=== PATIENT | female | born 1960 | race Two or more races ===

== ENCOUNTER → 2018-03-07 | Outpatient (CLI) | payer OTHER ==
[2018-03-07 11:06] LABS: ABSOLUTE BASOPHILS # (AUTO) 0.1 10^3/uL (0.0-0.2); ABSOLUTE EOSINOPHILS # (AUTO) 0.1 10^3/uL (0.0-0.6); ABSOLUTE LYMPHOCYTES (AUTO) 2.1 10^3/uL (0.5-4.7); ABSOLUTE MONOCYTES (AUTO) 0.4 10^3/uL (0.1-1.4); ABSOLUTE NEUT (AUTO) 4.8 10^3/uL (1.7-8.2); BASOPHILS % (AUTO) 0.7 % (0-2); HEMATOCRIT 42.2 % (36.0-47.0); HEMOGLOBIN 14.6 g/dL (12.0-15.5); LYMPHOCYTES % (AUTO) 27.8 % (13-45); MEAN CORPUSCULAR HEMOGLOBIN 31.1 pg (27.0-33.4); MEAN CORPUSCULAR HGB CONC 34.7 g/dL (32.0-36.0); MEAN CORPUSCULAR VOLUME 90 fl (80-97); MONOCYTES % (AUTO) 5.4 % (3-13); PLATELET COUNT 191 10^3/uL (150-450); RED BLOOD COUNT 4.71 10^6/uL (3.72-5.28); RED CELL DISTRIBUTION WIDTH 13.7 % (11.5-14.0); SEGMENTED NEUTROPHILS % (AUTO) 64.1 % (42-78); TOTAL CELLS COUNTED % (AUTO) 100 %; WHITE BLOOD COUNT 7.5 10^3/uL (4.0-10.5)
[2018-03-07 11:12] LABS: APPEARANCE,URINE SLIGHTLY-CLOUDY; BILIRUBIN,URINE NEGATIVE (NEGATIVE); COLOR,URINE YELLOW; GLUCOSE, URINE 150 mg/dL (NEGATIVE); KETONES,URINE NEGATIVE (NEGATIVE); LEUKOCYTE ESTERASE,URINE SMALL (NEGATIVE); NITRITE,URINE NEGATIVE (NEGATIVE); PROTEIN,URINE NEGATIVE (NEGATIVE); URINE SPECIFIC GRAVITY 1.018
[2018-03-07 11:35] LABS: ALANINE AMINOTRANSFERASE 19 U/L (9-52); ALBUMIN 4.1 g/dL (3.5-5.0); ALKALINE PHOSPHATASE 94 U/L (38-126); ANION GAP 9 (5-19); ASPARTATE AMINO TRANSFERASE 13 U/L (14-36); BILIRUBIN,DIRECT 0.3 mg/dL (0.0-0.4); BILIRUBIN,TOTAL 0.4 mg/dL (0.2-1.3); BLOOD UREA NITROGEN 18 mg/dL (7-20); CALCIUM 11.3 mg/dL (8.4-10.2); CARBON DIOXIDE 25 mmol/L (22-30); CHLORIDE 105 mmol/L (98-107); CHOLESTEROL 252.12 mg/dL (0-200); GLUCOSE 179 mg/dL (75-110); POTASSIUM 4.8 mmol/L (3.6-5.0); SODIUM 139.2 mmol/L (137-145); TOTAL PROTEIN 7.1 g/dL (6.3-8.2); TRIGLYCERIDES 223 mg/dL (<150); URIC ACID 4.6 mg/dL (2.5-7.5)
[2018-03-07 11:46] LABS: DIRECT LDL 154 mg/dL (<100)
[2018-03-07 11:54] LABS: VLDL CHOLESTEROL 44.6 mg/dL (10-31)
== END ==
LOC: CCC 10:20
DX: E11.8 Type 2 diabetes mellitus with unspecified complications (principal); E78.5 Hyperlipidemia, unspecified; I10 Essential (primary) hypertension
CPT/HCPCS: 36415; 80053; 80061; 81001; 83036; 84443; 84550; 85025

== ENCOUNTER → 2018-03-27 | Outpatient (CLI) | payer OTHER ==
--- NOTE | 2018-03-27 14:03 | RADIOLOGY REPORT (SQ) ---
EXAM DESCRIPTION: KNEE BILAT AP UPRIGHT COMPLETED DATE/TIME: 03/27/2018 12:56 pm REASON FOR STUDY: LEFT KNEE PAIN WITH LOCKING M24.562 CONTRACTURE, LEFT KNEE COMPARISON: None. NUMBER OF VIEWS: One view TECHNIQUE: AP standing bilateral knees. LIMITATIONS: None. FINDINGS: MINERALIZATION: Normal. RIGHT KNEE BONES: No acute fracture. No worrisome bone lesions. MEDIAL COMPARTMENT: No significant osteophytes. No joint space narrowing. No chondrocalcinosis. LATERAL COMPARTMENT: No significant osteophytes. No joint space narrowing. No chondrocalcinosis. LEFT KNEE BONES: No acute fracture. No worrisome bone lesions. MEDIAL COMPARTMENT: No significant osteophytes. No joint space narrowing. No chondrocalcinosis. LATERAL COMPARTMENT: No significant osteophytes. No joint space narrowing. No chondrocalcinosis. IMPRESSION: NEGATIVE STUDY OF THE STANDING LEFT AND RIGHT KNEES. NO SIGNIFICANT JOINT SPACE NARROWIN G OR OTHER SIGNS OF ARTHRITIS. TECHNICAL DOCUMENTATION: JOB ID: [id number] [employer]- All Rights Reserved Reading location - IP/workstation name: [email or web address]
== END ==
LOC: CCC 12:17
DX: M25.562 Pain in left knee (principal); M24.562 Contracture, left knee
CPT/HCPCS: 73565

== ENCOUNTER → 2018-04-16 | Outpatient (CLI) | payer OTHER | LOC: OD 13:26 | DX: E83.52 Hypercalcemia (principal) | CPT/HCPCS: 36415; 82330 ==

== ENCOUNTER → 2018-04-18 | Outpatient (CLI) | payer OTHER | LOC: CCC 13:32 | DX: E83.52 Hypercalcemia (principal) | CPT/HCPCS: 36415; 83970 ==

== ENCOUNTER → 2018-07-17 | Outpatient (CLI) | payer OTHER ==
[2018-07-17 14:38] LABS: ABSOLUTE EOSINOPHILS # (AUTO) 0.1 10^3/uL (0.0-0.6); ABSOLUTE LYMPHOCYTES (AUTO) 2.1 10^3/uL (0.5-4.7); ABSOLUTE MONOCYTES (AUTO) 0.3 10^3/uL (0.1-1.4); ABSOLUTE NEUT (AUTO) 3.6 10^3/uL (1.7-8.2); BASOPHILS % (AUTO) 0.4 % (0-2); EOSINOPHILS % (AUTO) 1.8 % (0-6); HEMATOCRIT 44.4 % (36.0-47.0); HEMOGLOBIN 15.1 g/dL (12.0-15.5); LYMPHOCYTES % (AUTO) 34.3 % (13-45); MEAN CORPUSCULAR HEMOGLOBIN 30.2 pg (27.0-33.4); MEAN CORPUSCULAR VOLUME 89 fl (80-97); MONOCYTES % (AUTO) 4.2 % (3-13); PLATELET COUNT 166 10^3/uL (150-450); SEGMENTED NEUTROPHILS % (AUTO) 59.3 % (42-78); TOTAL CELLS COUNTED % (AUTO) 100 %; WHITE BLOOD COUNT 6.1 10^3/uL (4.0-10.5)
[2018-07-17 15:03] LABS: ALANINE AMINOTRANSFERASE 36 U/L (9-52); ALBUMIN 4.4 g/dL (3.5-5.0); ALKALINE PHOSPHATASE 130 U/L (38-126); ANION GAP 7 (5-19); ASPARTATE AMINO TRANSFERASE 21 U/L (14-36); BILIRUBIN,DIRECT 0.3 mg/dL (0.0-0.4); BILIRUBIN,TOTAL 0.5 mg/dL (0.2-1.3); BLOOD UREA NITROGEN 18 mg/dL (7-20); CALCIUM 11.3 mg/dL (8.4-10.2); CARBON DIOXIDE 28 mmol/L (22-30); CHLORIDE 106 mmol/L (98-107); GLUCOSE 216 mg/dL (75-110); POTASSIUM 4.5 mmol/L (3.6-5.0); SODIUM 140.9 mmol/L (137-145); TOTAL PROTEIN 7.2 g/dL (6.3-8.2)
== END ==
LOC: CCC 13:34
DX: E83.52 Hypercalcemia (principal); E13.8 Other specified diabetes mellitus with unspecified complications
CPT/HCPCS: 36415; 80053; 82306; 82330; 83036; 84443; 85025

== ENCOUNTER → 2019-02-10 | Outpatient (CLI) | payer OTHER ==
[2019-02-10 15:49] LABS: ABSOLUTE EOSINOPHILS # (AUTO) 0.1 10^3/uL (0.0-0.6); ABSOLUTE MONOCYTES (AUTO) 0.4 10^3/uL (0.1-1.4); ABSOLUTE NEUT (AUTO) 4.8 10^3/uL (1.7-8.2); BASOPHILS % (AUTO) 0.5 % (0-2); EOSINOPHILS % (AUTO) 1.3 % (0-6); HEMOGLOBIN 15.1 g/dL (12.0-15.5); LYMPHOCYTES % (AUTO) 26.5 % (13-45); MEAN CORPUSCULAR HEMOGLOBIN 29.9 pg (27.0-33.4); MEAN CORPUSCULAR HGB CONC 33.6 g/dL (32.0-36.0); MEAN CORPUSCULAR VOLUME 89 fl (80-97); MONOCYTES % (AUTO) 6.1 % (3-13); PLATELET COUNT 136 10^3/uL (150-450); RED BLOOD COUNT 5.05 10^6/uL (3.72-5.28); RED CELL DISTRIBUTION WIDTH 14.1 % (11.5-14.0); SEGMENTED NEUTROPHILS % (AUTO) 65.6 % (42-78); TOTAL CELLS COUNTED % (AUTO) 100 %; WHITE BLOOD COUNT 7.4 10^3/uL (4.0-10.5)
[2019-02-10 16:06] LABS: ANION GAP 8 (5-19); BLOOD UREA NITROGEN 19 mg/dL (7-20); CALCIUM 11.6 mg/dL (8.4-10.2); CARBON DIOXIDE 27 mmol/L (22-30); CHLORIDE 101 mmol/L (98-107); GLUCOSE 326 mg/dL (75-110); POTASSIUM 4.5 mmol/L (3.6-5.0)
== END ==
LOC: CCC 15:13
DX: E11.9 Type 2 diabetes mellitus without complications (principal); B34.9 Viral infection, unspecified
CPT/HCPCS: 36415; 80048; 85025

== ENCOUNTER → 2019-08-25 | Outpatient (CLI) | payer MEDICAID ==
--- NOTE | 2019-08-25 12:51 | WOMENS IMAGING REPORT ---
EXAM DESCRIPTION: 3D SCREENING MAMMO BILAT COMPLETED DATE/TIME: 08/25/2019 12:35 pm REASON FOR STUDY: Z12.31 SCREENING MAMMO Z12.31 ENCNTR SCREEN MAMMOGRAM FOR MALIGNANT NEOPLASM OF B RE COMPARISON: 2014 EXAM PARAMETERS: Views: Standard craniocaudal and mediolateral oblique views of each breast recorded using digital acquisition and breast tomosynthesis. Read with the assistance of CAD. .[facility] - [employer] Version 9.2 LIMITATIONS: None. FINDINGS: No suspicious masses, suspicious calcifications or architectural distortion. No areas of c oncern. IMPRESSION: NEGATIVE MAMMOGRAM. BIRADS 1. BREAST DENSITY: b. There are scattered areas of fibroglandular density. BIRAD: ASSESSMENT: 1 NEGATIVE RECOMMENDATION: ROUTINE SCREENING COMMENT: The patient has been notified of the results by letter per MQSA requirements. Additional no tification policies are in place for contacting patient with suspicious or incomplete findings. Quality ID #[id number]: The [employer] recommends an annual screening mammogram for women aged 40 years or over. This facility utilizes a reminder system to ensure that all patients receive reminder letters, and/or direct phone calls for appointments. This includes reminders for routine scr eening mammograms, diagnostic mammograms, or other Breast Imaging Interventions when appropriate. Th is patient will be placed in the appropriate reminder system. TECHNICAL DOCUMENTATION: FINDING NUMBER: (1) ASSESSMENT: (1) JOB ID: [id number] 2010 [employer]- All Rights Reserved Reading location - IP/workstation name: [email or web address]
== END ==
LOC: WI 10:50
PROVIDERS: ATTEND Internal Medicine
DX: Z12.31 Encounter for screening mammogram for malignant neoplasm of breast (principal)
CPT/HCPCS: 77063; 77067

== ENCOUNTER → 2019-08-27 | Outpatient (CLI) | payer MEDICAID ==
--- NOTE | 2019-08-27 14:06 | RADIOLOGY REPORT (SQ) ---
EXAM DESCRIPTION: ARTERIAL LOWER EXTREM BILAT COMPLETED DATE/TIME: 08/27/2019 1:28 pm REASON FOR STUDY: PVD I73.9 PERIPHERAL VASCULAR DISEASE, UNSPECIFIED COMPARISON: None. TECHNIQUE: Dynamic and static abraham scale and color images acquired of the lower extremity arteries. Additional selected spectral images recorded. ABIs recorded. LIMITATIONS: None. FINDINGS: RIGHT LEG: ABIS: Normal, over 1.0. INFLOW ARTERIES: Normal, no obstruction evident. FEMORAL ARTERIES:Multiphasic waveforms. Normal, no velocity elevation to suggest focal stenosis. Norm al color Doppler evaluation. No aneurysm. POPLITEAL ARTERY:Multiphasic waveforms. Normal, no velocity elevation to suggest focal stenosis. Norm al color Doppler evaluation. No aneurysm. PATENT TIBIOPERONEAL TRUNK AND 3 VESSEL RUNOFF: Yes, normal vessels. TBI: Not performed. OTHER: No other significant finding. LEFT LEG: ABIS: Normal, over 1.0. INFLOW ARTERIES: Normal, no obstruction evident. FEMORAL ARTERIES:Multiphasic waveforms. Normal, no velocity elevation to suggest focal stenosis. Norm al color Doppler evaluation. No aneurysm. POPLITEAL ARTERY:Multiphasic waveforms. Normal, no velocity elevation to suggest focal stenosis. Norm al color Doppler evaluation. No aneurysm. PATENT TIBIOPERONEAL TRUNK AND 3 VESSEL RUNOFF: Yes, normal vessels. TBI: Not performed. OTHER: No other significant finding. IMPRESSION: NORMAL BILATERAL LOWER EXTREMITY ARTERIAL DOPPLER WITH ABIs. COMMENT: VIGNESH NORMAL: Greater than 1.0 MINIMAL DISEASE: 0.9 to 1.0 CLAUDICATION: 0.5 to 0.9 SEVERE ARTERIAL DISEASE: Less than 0.5 [facility] NORMAL: Greater than 1.0 (1.2 If Heavy Calcifications) NORMAL TO MILD ISCHEMIA: 0.8 to 1.0 MODERATE ISCHEMIA: 0.4 to 0.8 SEVERE ISCHEMIA: Less than 0.4 TECHNICAL DOCUMENTATION: JOB ID: [id number] 2010 [employer]- All Rights Reserved Reading location - IP/workstation name: [email or web address]
== END ==
LOC: SP 10:28
PROVIDERS: ATTEND Internal Medicine
DX: I73.9 Peripheral vascular disease, unspecified (principal)
CPT/HCPCS: 93925

== ENCOUNTER → 2019-11-07 | Outpatient (CLI) | payer MEDICAID ==
[2019-11-07 12:00] LABS: BLOOD UREA NITROGEN 14 mg/dL (7-20); CALCIUM 11.3 mg/dL (8.4-10.2)
== END ==
LOC: OD 11:19
PROVIDERS: ATTEND Surgery
DX: E21.3 Hyperparathyroidism, unspecified (principal)
CPT/HCPCS: 36415; 82306; 82310; 82565; 83970; 84520

== ENCOUNTER → 2019-11-17 | Outpatient (CLI) | payer MEDICAID ==
--- NOTE | 2019-11-17 14:24 | RADIOLOGY REPORT (SQ) ---
EXAM DESCRIPTION: NM PARATHYROID IMAGING IMAGES COMPLETED DATE/TIME: 11/17/2019 2:15 pm REASON FOR STUDY: (E21.3)HYPERPARATHYROIDISM, UNSPECIFIED;(E83.52)HYPERCALCEMIA E21.3 HYPERPARATHYR OIDISM, UNSPECIFIED E83.52 HYPERCALCEMIA COMPARISON: None. RADIONUCLIDE AND DOSE: 21.8 millicuries Tc-99m Sestamibi. The route of agent administration: Intravenous ADDITIONAL DRUGS AND DOSES: None. TECHNIQUE: Early and delayed images of the neck acquired following radionuclide administration. LIMITATIONS: None. FINDINGS: Thyroid: Normal size. Homogeneous activity. Normal washout. No focal lesions. Parathyroid: Retained activity focally over the region of the lower pole of the right lobe of the thy roid suggestive of an inferior parathyroid adenoma. Other: No other significant findings. IMPRESSION: Study is suggestive of a solitary inferior right parathyroid adenoma. TECHNICAL DOCUMENTATION: JOB ID: [id number] 2010 [employer]- All Rights Reserved Reading location - IP/workstation name: [email or web address]
== END ==
LOC: RAD 10:44
PROVIDERS: ATTEND Surgery
DX: E83.52 Hypercalcemia (principal)
CPT/HCPCS: 78070; A9500; Q9969

== ENCOUNTER → 2019-11-25 | Outpatient (CLI) | payer MEDICAID ==
--- NOTE | 2019-11-25 10:18 | WOMENS IMAGING REPORT ---
EXAM DESCRIPTION: BONE DENSITY HIP/SPINE IMAGES COMPLETED DATE/TIME: 11/25/2019 10:09 am REASON FOR STUDY: E21.0 PRIMARY HYPERPARATHYROIDISM E21.0 PRIMARY HYPERPARATHYROIDISM COMPARISON: None. TECHNIQUE: Dual-Energy X-ray Absorptiometry (DEXA) of the AP Spine and Hip. LIMITATIONS: None. FINDINGS: LUMBAR SPINE: The bone mineral density (BMD) measured from L1-L4 in the AP projection correlates with a T-score of -1.8, which is osteopenia as defined by the World Health Organization. BMD Change vs Baseline: N/A HIP: The bone mineral density (BMD) measured in the left femoral neck correlates with a T-score of -2.7, w hich is osteoporosis as defined by the World Health Organization. BMD Change vs Baseline: N/A IMPRESSION: 1. LUMBAR SPINE WHO CLASSIFICATION: OSTEOPENIA. 2. HIP WHO CLASSIFICATION: OSTEOPOROSIS. OVERALL ASSESSMENT: WHO CLASSIFICATION: OSTEOPOROSIS. COMMENT: The World Health Organization defines low BMD as follows: T-score: Normal: At or above -1.0 Osteopenia: Between -1.0 and -2.5 Osteoporosis: At or below -2.5 without fractures Established osteoporosis: At or below -2.5 with fractures In general, you may wish to consider: Diagnosis Treatment Follow-up DEXA Normal BMD Prevention 2-3 years Osteopenia Prevention/Therapy 1-2 years Osteoporosis Therapy Yearly TECHNICAL DOCUMENTATION: JOB ID: [id number] 2010 [employer]- All Rights Reserved Reading location - IP/workstation name: [email or web address]
== END ==
LOC: WI 09:50
PROVIDERS: ATTEND Internal Medicine
DX: E21.0 Primary hyperparathyroidism (principal)
CPT/HCPCS: 77080

== ENCOUNTER 2020-02-04 05:24 | Day surgery (SDC) | payer MEDICAID, OTHER ==
[2020-01-30 10:01] LABS: HEMATOCRIT 45.3 % (36.0-47.0); HEMOGLOBIN 15.2 g/dL (12.0-15.5); MEAN CORPUSCULAR HEMOGLOBIN 29.6 pg (27.0-33.4); MEAN CORPUSCULAR HGB CONC 33.5 g/dL (32.0-36.0); MEAN CORPUSCULAR VOLUME 89 fl (80-97); PLATELET COUNT 224 10^3/uL (150-450); RED BLOOD COUNT 5.12 10^6/uL (3.72-5.28); RED CELL DISTRIBUTION WIDTH 14.2 % (11.5-14.0); WHITE BLOOD COUNT 6.7 10^3/uL (4.0-10.5)
[2020-01-30 10:27] LABS: ANION GAP 8 (5-19); BLOOD UREA NITROGEN 15 mg/dL (7-20); CALCIUM 11.3 mg/dL (8.4-10.2); CARBON DIOXIDE 23 mmol/L (22-30); CHLORIDE 105 mmol/L (98-107); GLUCOSE 256 mg/dL (75-110); POTASSIUM 4.3 mmol/L (3.6-5.0)
[~2020-02-04 05:24] MED LIST: CEFAZOLIN 1 GM/D5W RTU 1 GM/50 ML RTUPB IV ONE; CEFAZOLIN 1 GM/D5W RTU 1 GM/50 ML RTUPB IV PRN; LACTATED RINGERS 1000 ML IV PRN; LIDOCAINE 0.5% INJ-PF (5 MG/ML) 50 ML SDV SUBCUT PRN
[2020-02-04] MEDS ORDERED: MIDAZOLAM 2 MG/2 ML INJ ONE (06:39)
[2020-02-04] MEDS ORDERED: FENTANYL CITRATE INJ/PF 250 MCG/5 ML AMPULE ONE (06:39)
[2020-02-04] MEDS ORDERED: PROPOFOL INJ 200 MG/20 ML VIAL IV ONE ×2 (06:40)
[2020-02-04] MEDS ORDERED: MICROFIBRILLAR COLLAGEN 1 GM PACK ONE (07:12)
[2020-02-04] MEDS ORDERED: EPHEDRINE SULFATE INJ 50 MG/1 ML AMPULE ONE (08:16)
[2020-02-04] MEDS ORDERED: MEPERIDINE HCL/PF INJ 25 MG/1 ML DISP.SYRIN IV PRN (08:22)
[2020-02-04] MEDS ORDERED: DIPHENHYDRAMINE HCL 50 MG/ML VIAL IV PRN (08:22)
[2020-02-04] MEDS ORDERED: ONDANSETRON HCL INJ/PF 4 MG/2 ML SDV IV PRN (08:22)
[2020-02-04] MEDS ORDERED: FENTANYL CITRATE INJ/PF 100 MCG/2 ML AMPUL IV PRN ×3 (08:22)
[2020-02-04] MEDS ORDERED: PROMETHAZINE HCL INJ 25 MG/1 ML VIAL IV PRN (08:22)
[2020-02-04] MEDS ORDERED: MORPHINE SULFATE 10 MG/ML INJ IV PRN (08:22)
[2020-02-04] MEDS ORDERED: NORMAL SALINE 1000 ML 1,000 ML IV PRN (09:34)
[2020-02-04] MEDS ORDERED: FENTANYL CITRATE INJ/PF 100 MCG/2 ML AMPUL ONE (09:37)
--- NOTE | 2020-02-04 09:37 | Operative Report ---
Operative Report DATE OF SURGERY: 02/04/20 PREOPERATIVE DIAGNOSIS: 1. Hypercalcemia. 2. Hyperparathyroidism. 3. Diabe mindy mellitus. 4. smoker POSTOPERATIVE DIAGNOSIS: Same with hypertrophied right lower parathyroid gland consistent with adenoma OPERATION: 1. Neck exploration with ultrasound direction. 2. Right lower parathyroidectomy SURGEON: DAVID PALMA 1ST FILLER WIPER: CHRYSTAL MENDES ANESTHESIA: GA TISSUE REMOVED OR ALTERED: Right lower parathyroid gland COMPLICATIONS: None ESTIMATED BLOOD LOSS: Scant INTRAOPERATIVE FINDINGS: See below PROCEDURE: Indication for procedure: The patient is a 59-year-old female with history of hypercalcemia and hyperparathyroidism who was found on sestamibi scan to have an area of increased uptake in the right lower neck. Patient underwent ultrasonography by Dr. Palma and was found to have a right lower neck mass consistent with parathyroid adenoma. The patient is now taken to the operating room for right lower parathyroidectomy. The patient was taken to the operating through ambulatory surgery where general anesthesia was induced. Patient was placed in the semi-recumbent position, cervical spine extended, and roll placed between the shoulder blades. The neck was prepped and draped in a sterile fashion with Betadine. Surgical plan surgical timeout were conducted. The neck is been previously marked in the holding area by Dr. Palma for standard transcervical incision. The skin was incised along the marking in the previously identified skin crease with #10 blade. Superior and inferior skin flaps were raised. The platysma was elevated along with the skin flaps. Strap muscles were now divided midline. Initially the division was to the right of true midline, resulting in the ligation and removal of 1 of the superficial cervical veins. This allowed us to back on anatomic midline, and separate the sternohyoid muscles for the entire length of the exposure from the cartilage down to the sternal notch. We now gently swept the strap muscles off the anterior surface of the thyroid lobe with peanut dissection. Retractors were used to expose the inferior right thyroid pole. Intraoperative ultrasonography was used at this point to assist in the localization of the parathyroid adenoma. We identified the suspect gland beneath the right thyroid lobe. A Few venous branches to the inferior thyroid pole were taken. We now visualized the fatty tissue surrounding the right inferior parathyroid gland. This was directly posterior to the thyroid lobe, medial to the carotid sheath. We carefully dissected the gland away from the surrounding adventitia. The dominant vascular pedicle was taken down between clips. The gland was removed, taken to pathology where it was examined by Dr. Fernandes, and weighed in at 500 mg. Frozen section revealed a combination of normal parathyroid tissue and hyperplastic tissue consistent with parathyroid adenoma. Because of the Concordant preoperative localization studies demonstrating right lower neck mass, and the intraoperative findings as described above, we felt that the operation was complete. Sponge and needle counts are correct. Hemostasis was checked and there was no evidence of bleeding. The neck was now closed with strap muscles approximated with 2-0 Vicryl, skin and platysma brought together with 3-0 Vicryl, neck glued with skin glue. Patient tolerated the procedure well, extubated, taken to recovery in stable condition. The physician surgery assistant, Ms. Duval, provided assistance during this case by: retracting tissue, instillation of local anesthesia and closure of skin incisions.
[2020-02-04] MEDS ORDERED: OXYCODONE-ACETAMINOPHEN 5-325 MG TABLET PO PRN (09:40)
[2020-02-04] MEDS ORDERED: KETOROLAC TROMETHAMINE INJ/PF 30 MG/1 ML SDV IV PRN (09:45)
[2020-02-04] MEDS ORDERED: DEXAMETHASONE SOD PHOSPHATE INJ 4 MG/1 ML VIAL ONE (14:34)
[2020-02-04] MEDS ORDERED: SUCCINYLCHOLINE CHLORIDE INJ 200 MG/10 ML VIAL ONE (14:34)
[2020-02-04] MEDS ORDERED: PHENYLEPHRINE HCL INJ/PF 10 MG/1 ML SDV ONE (14:34)
[2020-02-04] MEDS ORDERED: ONDANSETRON HCL INJ/PF 4 MG/2 ML SDV ONE (14:34)
[2020-02-04] MEDS: ACETAMINOPHEN 1,000 MG/100 ML RTUPB IV SCH ×2 (15:44→22:11)
[2020-02-04] MEDS ORDERED: ACETAMINOPHEN INJ/PF 1000 MG/100 ML SDV IV SCH (16:00)
[2020-02-04] MEDS ORDERED: DEXTROSE 40% GEL 15 GM TUBE PO PRN (22:00)
[2020-02-04] MEDS ORDERED: DEXTROSE 40% GEL 15 GM TUBE X 2 PO PRN (22:00)
[2020-02-04] MEDS ORDERED: DEXTROSE 50%-WATER SYRINGE 25 GM/50 ML DOSE IV PRN (22:00)
[2020-02-04] MEDS ORDERED: GLUCAGON,HUMAN RECOMB 1 MG INJ IM PRN (22:00)
[2020-02-04] MEDS ORDERED: INSULIN LISPRO 100 UNIT/ML 3 ML VIAL SUBCUT SCH (22:00)
[2020-02-04] MEDS ORDERED: DEXTROSE 50%-WATER SYRINGE 12.5 GM/25 ML DOSE IV PRN (22:00)
[2020-02-05] MEDS: ACETAMINOPHEN 1,000 MG/100 ML RTUPB IV SCH ×2 (02:23→08:52)
--- NOTE | 2020-02-05 08:35 | PDOC DISCHARGE SUMMARY ---
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 Palma went right lower parathyroidectomy. She tolerated procedure well had no postoperative complications. She was observed overnight. Her calcium and PTH levels normalized. The morning following surgery calcium levels 8.9 her PTH level was 79.7. She had mild erythema of her inferior skin flap, but no cellulitis or other. She is felt ready for discharge home. She was discharged home on Tylenol, Motrin, and Keflex for which a prescription was provided. She will follow-up with Dr. Palma in 1 week at [facility]. Patient is to resume her preop medications for her chronic medical problems. - Additional Information Resuscitation Status: Full Code Discharge Diet: As Tolerated Discharge Activity: Activity As Tolerated, Slowly Increase Activity Referrals: DAVID PALMA MD [ACTIVE STAFF] - 02/13/20 1:15 pm Home Medications: Empagliflozin [Jardiance] 10 mg PO DAILY 01/30/20 Glipizide [Glipizide Xl] 10 mg PO DAILY 01/30/20 Insulin Glargine,Hum.rec.anlog [Lantus Insulin 100 Unit/1 ml 10 ml] 35 units SQ QHS 01/30/20 Lisinopril 20 mg PO DAILY 01/30/20 Metformin HCl [Metformin ER Osmotic] 500 mg PO DAILY 01/30/20 History of Present Illiness History of Present Illness: VIVIANA TRACEY is a 59 year old female Physical Exam Vital Signs: Temp Pulse Resp BP Pulse Ox 97.9 F 76 17 123/68 99 02/05/20 08:07 02/05/20 07:20 02/05/20 07:20 02/05/20 07:20 02/05/20 07:20 Intake & Output 02/04/20 02/05/20 02/06/20 06:59 06:59 06:59 Intake Total 0 2330 Output Total 50 Balance 0 2280 Weight 68.95 kg 68.95 kg Results Laboratory Results: WBC 6.7 10^3/uL (4.0-10.5) 01/30/20 09:46 RBC 5.12 10^6/uL (3.72-5.28) 01/30/20 09:46 Hgb 15.2 g/dL (12.0-15.5) 01/30/20 09:46 Hct 45.3 % (36.0-47.0) 01/30/20 09:46 MCV 89 fl (80-97) 01/30/20 09:46 MCH 29.6 pg (27.0-33.4) 01/30/20 09:46 MCHC 33.5 g/dL (32.0-36.0) 01/30/20 09:46 RDW 14.2 % (11.5-14.0) H 01/30/20 09:46 Plt Count 224 10^3/uL (150-450) 01/30/20 09:46 Sodium 136.2 mmol/L (137-145) L 01/30/20 09:46 Potassium 4.3 mmol/L (3.6-5.0) 01/30/20 09:46 Chloride 105 mmol/L (98-107) 01/30/20 09:46 Carbon Dioxide 23 mmol/L (22-30) 01/30/20 09:46 Anion Gap 8 (5-19) 01/30/20 09:46 BUN 15 mg/dL (7-20) 01/30/20 09:46 Creatinine 0.53 mg/dL (0.52-1.25) 01/30/20 09:46 Est GFR ( Amer) > 60 (>60) 01/30/20 09:46 Est GFR (MDRD) Non-Af > 60 (>60) 01/30/20 09:46 Glucose 256 mg/dL (75-110) H 01/30/20 09:46 POC Glucose 191 mg/dL (70-110) H 02/05/20 06:15 Hemoglobin A1c % 9.9 % (4.7-6.0) H 01/30/20 09:46 Calcium 8.9 mg/dL (8.4-10.2) 02/05/20 04:50 PTH Intact 9.7 pg/mL (10.0-65.0) L 02/05/20 04:50 COVID-19 Source NASOPHARYNGEAL 01/30/20 09:42 COVID-19 (RICH) NOT DETECTED 01/30/20 09:42
[2020-02-05 08:45] VITALS: BP 165/88
[2020-02-05] MEDS ORDERED: LISINOPRIL 10 MG TABLET PO SCH (10:00)
[2020-02-05] MEDS ORDERED: GLIPIZIDE XL 5 MG TAB.ER.24 PO SCH (10:00)
[2020-02-05] MEDS ORDERED: (PENDING PHARMACY ID) (Empagliflozin [Jardiance] 10 MG) PO SCH (10:00)
[2020-02-05] MEDS ORDERED: METFORMIN HCL 500 MG TABLET PO SCH (10:00)
[2020-02-05] MEDS ORDERED: INSULIN GLARGINE,HUM.REC.ANLOG 1,000 UNIT/10 ML VIAL SUBCUT SCH (22:00)
== END 2020-02-05 10:12 | disposition home or self-care (01) ==
LOC: OROUT 05:24 → 4N 10:42 → OROUT 02-05 10:12
PROVIDERS: ATTEND Surgery
DX: E21.3 Hyperparathyroidism, unspecified (principal); D35.1 Benign neoplasm of parathyroid gland; E11.9 Type 2 diabetes mellitus without complications; I10 Essential (primary) hypertension; F17.210 Nicotine dependence, cigarettes, uncomplicated; Z79.4 Long term (current) use of insulin; Z79.84 Long term (current) use of oral hypoglycemic drugs; Z03.818 Encounter for observation for suspected exposure to other biological agents ruled out
CPT/HCPCS: 320; 36415; 80048; 82310; 82962; 83036; 83970; 85027; 87635; 88305; 88331; 94799; C9803; J0131; J0330; J0690; J1100; J1815; J1885; J2250; J2370; J2405; J2704; J3010; J3490; J7030

== ENCOUNTER → 2020-04-05 | Outpatient (CLI) | payer MEDICAID | LOC: OD 14:09 | PROVIDERS: ATTEND Surgery | DX: Z09 Encounter for follow-up examination after completed treatment for conditions other than malignant neoplasm (principal); Z98.890 Other specified postprocedural states | CPT/HCPCS: 36415; 82310; 83970 ==